=== PATIENT | female | born 1985 | race African-American/Black ===

== ENCOUNTER 2021-02-15 11:51 | Emergency (ER) | payer BC ==
[~2021-02-15] VITALS: Ht 172.7 cm; Wt 108.9 kg
[2021-02-15 11:58] VITALS: BP 143/90
[2021-02-15] MEDS ORDERED: TDAP [DIPH/PERTUSSIS/TET] 0.5 ML VIAL IM ONE ×2 (12:00→12:04)
--- NOTE | 2021-02-15 12:00 | NUR ---
THE PATIENT BIBS FOR C/O RIGHT ANTERIOR THIGH - CUT. THE CUT IS ABOUT 0.5 CM. RATES PAIN 2/10. WILL CONTINUE TO MONITOR THE PATIENT.
--- NOTE | 2021-02-15 12:11 | NUR ---
The patient alert and oriented x4. Patient discharged to home in stable condition. Written and verbal after care instructions given. Patient verbalizes understanding of instruction.
== END 2021-02-15 12:11 | disposition home or self-care (01) ==
LOC: EDSEX 11:55 → ER 11:55
DX: S71.111A Laceration without foreign body, right thigh, initial encounter (principal); W26.0XXA Contact with knife, initial encounter; Y93.89 Activity, other specified; Y92.89 Other specified places as the place of occurrence of the external cause; Y99.8 Other external cause status
CPT/HCPCS: 90715